=== PATIENT | female | born 1950 | race Caucasian/White ===

== ENCOUNTER 2016-06-05 16:54 | Inpatient (IN) | payer MEDICARE, OTHER ==
[~2016-06-05] VITALS: Ht 165.1 cm; Wt 118.1 kg
[~2016-06-05 16:54] MED LIST: FUR20 PO; GLIP10TA10 PO; INSU100I18 SUBQ; INSU100V7 SUBQ; LEVO88TA4 PO; METO25TA99 PO; POTA20TA16 PO; SERT20OR6 PO; TRAZ-115 PO; WARF6TAB6 PO
[2016-06-05 17:03] VITALS: BP 122/71; PULSE 89; RESP 13
--- NOTE | 2016-06-05 17:05 | ED.REPORT ---
HPI-General Illness Date of Service Jun 05, 2016 ED Provider: Dr. Renan David, GilbertoO. A 65 year old female with a medical history including CHF, diabetes, hypothyroid , depression, and atrial fibrillation on Coumadin presents to the ED from Urgent Care with worsening generalized weakness onset two days ago, worst in her bilateral legs and neck. Associated symptoms include exertional SOB and fatigue. The patient denies focal weakness, headache, chest pain, fever, cough, vomiting, diarrhea, dysuria, or other symptoms. She has never had similar symptoms in the past. Nursing Notes Stated Complaint: FATIGUE, WEAK LEGS Chief Complaint: General Complaint Nursing Notes Reviewed: Yes Allergies: Coded Allergies: TAPE (Verified Allergy, Unknown, 05/21/15) codeine (Verified Adverse Reaction, Severe, Nausea,Vomiting, 05/21/15) "that was something I don't want to feel like again" Scheduled Digoxin (Digoxin) 250 Mcg Tablet 250 MCG PO QAM Furosemide (Furosemide) 20 Mg Tab 20 MG PO QAM Glipizide (Glipizide) 5 Mg Tablet 5 MG PO BIDWM Insulin Aspart (NovoLOG U100 Insulin Vial) 100 U/Ml U 5 UNIT SUBQ DAILYWM 5 UNITS WITH BREAKFAST, 5-7 UNITS WITH DINNER Insulin Aspart (NovoLOG U100 Insulin Vial) 100 U/Ml U 5-7 UNIT SUBQ DAILYWD 5 UNITS WITH BREAKFAST, 5-7 UNITS WITH DINNER Insulin Glargine (Lantus U100 Insulin Vial) 100 Unit/Ml Vial 10 UNIT SUBQ HS Levothyroxine (Levothyroxine) 88 Mcg Tablet 88 MCG PO QAM Magnesium Oxide (Magnesium Oxide) 400 Mg Tablet 400 MG PO QAM Metoprolol Succinate ER (Metoprolol Succinate ER) 25 Mg Tab.er.24h 25 MG PO QAM Multivit with Calcium,Iron,Min (Therapeutic M) 1 Each Tablet 1 EACH PO QAM Potassium Chloride (Potassium Chloride) 20 Meq Tablet 20 MEQ PO DAILYWM Ranitidine (Ranitidine) 150 Mg Capsule 150 MG PO BIDWM Sertraline HCl (Sertraline) 20 Mg/1 Ml Oral.conc 100 MG PO QAM Trazodone (Trazodone) 50 Mg Tablet 100-150 MG PO HS Warfarin Sodium (Warfarin Sodium) 6 Mg Tablet 6 MG PO DAILY EXCEPT SUNDAYS 3 MG ON SUNDAYS, 6 MG ALL OTHER DAYS Warfarin Sodium (Warfarin Sodium) 6 Mg Tablet 3 MG PO SUNDAYS 3 MG ON SUNDAYS, 6 MG ALL OTHER DAYS Scheduled PRN Albuterol HFA (Proair HFA) 8.5 Gm Hfa.aer.ad 2 PUFFS INHALATION Q4H PRN PRN For Shortness of Breath General Time Seen by MD: 17:04 Chief Complaint Weakness Hx Obtained From: Patient Arrived By: Walk-in Sudden in Onset?: No Onset Occurred: 2 days ago Symptom Duration: Since onset Severity: Current: No pain currently Severity: Maximum: No pain Associated with: Denies: Fever Exacerbated by: Moving affected area Pertinent Negative: Relieved by nothing Context Related History: Reports Asthma, Reports Depression, Reports Diabetes mellitus , Reports GERD Recent Healthcare: Recent doctor visit Similar Sx Previous: No Past Medical History Past Medical History Notes: On Coumadin (06/05/16) Echocardiogram from April 2015, showed normal ejection fraction and diastolic dysfunction. Past Medical History Depression Anxiety Hypothyroid frequency ground level falls secondary to alcohol intoxication (binge drinker) Reports: Asthma, Congestive heart failure (Diastolic), Diabetes mellitus, GERD, Hyperlipidemia Reports: Atrial fibrillation Past Surgical History Bilateral achilles tendons surgery Bilateral ankle repair Hiatal hernia surgery Reports: Appendectomy, Cholecystectomy, Hysterectomy, Tonsillectomy Family History Reports: Coronary artery disease Smoking History Former Smoker Social History Today (12/24/14) the patient states she drinks two times a week, binge drinks Alcohol Use: 1-3 per week Drug Use: Denies drug use Other Social History: Lives alone, Local resident Ambulatory Status Walker Review of Systems Full Review of Systems Constitutional: Reports: Fatigue, Weakness - generalized (Worst in bilateral legs and neck), Denies: Fever Respiratory: Reports: Shortness of breath (Exertional), Denies: Non-productive cough Cardiovascular: Denies: Chest pain GI: Denies: Diarrhea, Vomiting Female: Denies: Dysuria Neurologic: Denies: Focal weakness, Headache Complete sys rev & neg: except as marked. Physical Exam Vital Signs Vital Signs Date Time Temp Pulse Resp B/P Pulse Ox O2 Delivery O2 Flow Rate FiO2 06/05/16 18:26 91 14 130/108 97 Room Air 06/05/16 17:03 36.2 89 13 122/71 Room Air Initial VS: Reviewed Head / Eyes: Atraumatic, Normocephalic ENT: Conjunctiva normal, No scleral icterus Neck: Supple, Full range of motion Respiratory: Breath sounds normal, Clear to auscultation, No respiratory distress Cardiovascular: Regular rate & rhythm, Heart sounds normal Skin: Warm, Dry, No cyanosis Psychiatric: Mood/affect normal, Behavior normal, Normal thought content General/Constitutional: Awake, Alert Distress / Hydration: Positive: Distress mild Lower Extremity / Pelvis / MS: Full range of motion, Vascular intact (Normal pulses), No edema Neurologic: Oriented X3, Speech NL, No sensory deficits, Reflexes equal bilat 3/5 hip flexor strength 5/5 plantarflexion and dorsiflexion strength Interpretation & Diagnostics Lab Results Interpretation Result Diagram: 06/05/16 1800 06/05/16 1800 Test 06/05/16 17:10 06/05/16 18:00 06/05/16 18:20 Hold Purple Top Tube Received (Received) Hold Red Top Tube Received (Received) Hold [place] Top Tube Received (Received) Alcohols < 10mg/dL (0-10) Ketones Negative (Negative) White Blood Count 6.7th/mm3 (3.8-10.1) Red Blood Count 3.53mil/mm3 (3.90-5.20) Hemoglobin 9.8g/dL (12.0-15.6) Hematocrit 31.2% (35.0-46.0) Mean Corpuscular Volume 88.4fL (81-100) Mean Corpuscular Hemoglobin 27.8pg (27.0-35.0) Mean Corpuscular Hemoglobin Concent 31.4% (32.0-37.0) Red Cell Distribution Width 16.9% (12.3-15.4) Platelet Count 306bil/L (150-400) Neutrophils (%) (Auto) 84.8% (40-74) Lymphocytes (%) (Auto) 8.1% (14-46) Monocytes (%) (Auto) 5.1% (4-12) Eosinophils (%) (Auto) 1.6% (0-5) Basophils (%) (Auto) 0.1% (0-3) Sodium Level 134mEq/L (134-144) Potassium Level 3.1mEq/L (3.5-5.2) Chloride Level 89mEq/L (97-108) Carbon Dioxide Level 26mmol/L (18-29) Blood Urea Nitrogen 9mg/dL (8-27) Creatinine 0.74mg/dL (0.57-1.00) Estimat Glomerular Filtration Rate 112mL/min (>59) Glucose Level 247mg/dL (60-99) Calcium Level 8.9mg/dL (8.5-10.1) Magnesium Level 1.6mg/dL (1.6-2.6) Total Bilirubin 0.7mg/dL (0.0-1.2) Aspartate Amino Transf (AST/SGOT) 8U/L (0-50) Alanine Aminotransferase (ALT/SGPT) 6U/L (0-32) Alkaline Phosphatase 119U/L (25-165) Troponin T < 0.010ug/L (0.0-0.011) Pro-B-Type Natriuretic Peptide 844.5pg/mL (0-301) Total Protein 7.2g/dL (6.4-8.4) Albumin 3.9g/dL (3.4-5.0) Prothrombin Time 19.9sec (8.1-12.5) Prothromb Time International Ratio 1.84ratio D-Dimer < 0.50mg/L FEU (<0.50) Hold [place] Top Tube Received (Received) ECG Interpretation ECG Interpretation: Atrial fibrillation rate 96 Left axis deviation Repol abnrm suggests ischemia, lateral leads Time: 18:29 Interpreted by: ED physician X-Ray Chest Interpretation Chest Xray Interpretation: IMPRESSION: 1. No acute cardiopulmonary disease. 2. Large hiatal hernia redemonstrated. Dictated by: Hieu Sotelo M.D. on 06/05/2016 at 18:56 View: Portable, 1 view Interpretation / Wet Read by: Interpret - Radiologist Re-Eval/Medical Decision Med Decision/Clinical Course Severe dyspnea on exertion with a sense of generalized weakness, this does not seem to be a progressive neurologic phenomenon such as Guillain-Valdes, this does not seem to be stroke in nature, there is no evidence of pneumonia, this may be related to congestive heart failure or some sort of anginal equivalent. However, this patient is clearly not stable for discharge based on her severely limited functional status which has been an acute change today. I recommended she be admitted for further evaluation. Source of Hx: Old records Time of Eval: 19:06 Patient Status: Condition improved Re-Evaluation/Progress Note: Patient rechecked. She is feeling better. Time of Eval: 20:00 Patient Status: Condition improved Re-Evaluation/Progress Note: On road test patient became extremely short of breath. Discussed with patient x-ray and lab results, diagnosis, and plan for admit. Patient agrees with plan for care and all questions were addressed. Consultation : Referral / Consult Name: Pete Tobar MD Consulted With: Hospitalist Call Returned at: 20:09 Supervisor [employer]: Agrees with eval, Agrees with plan, Accepts admit Counseled Regarding: Diagnosis, Lab results, Need for admission Discharge & Departure Primary Impression: Congestive heart failure Congestive heart failure type: unspecified congestive heart failure type Congestive heart failure chronicity: unspecified congestive heart failure chronicity Qualified Code: I50.9 - Heart failure, unspecified Disposition: ADMITTED TO HOSPITAL Discharge Condition All VS Reviewed: Yes Condition: Improved Referrals: Alvin Mayer MD (PCP) Scribe Attestation Portions of this note were transcribed by Jaylene Bains. I, Dr. David, personally performed the history, physical exam, and medical decision-making; I reviewed and confirmed the accuracy of the information in the transcribed note. Signed by: Iris Almaguer, 06/05/2016, 21:17 copies to: Alvin Mayer MD, Timothy S DO Jun 05, 2016 17:05 JAYLENE BAINS Jun 05, 2016 17:34
[2016-06-05] MEDS ORDERED: 0.9% Sodium Chloride 500 ML IV ONE (17:55)
[2016-06-05 18:03] LABS: BASOPHILS % (AUTO) 0.1 % (0-3); EOSINOPHILS % (AUTO) 1.6 % (0-5); MONOCYTES % (AUTO) 5.1 % (4-12); Mean Corpuscular Hemoglobin 27.8 pg (27.0-35.0); Mean Corpuscular Volume 88.4 fL (81-100); NEUTROPHILS % (AUTO) 84.8 % (40-74); Platelet Count 306 bil/L (150-400)
[2016-06-05 18:17] LABS: TROPONIN T < 0.010 ug/L (0.0-0.011)
[2016-06-05 18:26] VITALS: BP 130/108; PULSE 91; RESP 14; O2SAT 97
[2016-06-05 18:27] LABS: Magnesium 1.6 mg/dL (1.6-2.6)
[2016-06-05] MEDS ORDERED: Potassium Chloride 20 mEq SR Tablet PO ONE (18:35)
--- NOTE | 2016-06-05 18:59 | DRSVH ---
PROCEDURE: X-RAY CHEST ONE VIEW, PORTABLE ([id number]) INDICATIONS: dyspnea TECHNIQUE: One view of the chest was acquired. COMPARISON: [facility], CR, CHEST 1VW (PORTABLE), 04/02/2013, 9:34. [facility], CR, XR CHEST 1VW (PORTABLE), 05/21/2015, 23:50. FINDINGS: Surgical changes and devices: Multiple surgical clips are redemonstrated in the lower mediastinum and left upper quadrant Lungs and pleura: No pleural effusions or pneumothorax. Lungs are clear. Mediastinum: There is a large hiatal hernia demonstrated. Heart size is normal. Bones and chest wall: No suspicious bony lesions. Overlying soft tissues appear unremarkable. IMPRESSION: 1. No acute cardiopulmonary disease. 2. Large hiatal hernia redemonstrated. Dictated by: Hieu Sotelo M.D. on 06/05/2016 at 18:56 Approved by: Hieu Sotelo M.D. on 06/05/2016 at 18:57
[2016-06-05 19:01] LABS: D-Dimer < 0.50 mg/L FEU (<0.50); INR 1.84 ratio
[2016-06-05] MEDS ORDERED: GLPZ5T PO (20:39)
[2016-06-05] MEDS ORDERED: INSU100C8 SUBQ ×2 (20:39)
[2016-06-05] MEDS ORDERED: RANI150C4 PO (20:45)
[2016-06-05] MEDS ORDERED: ALBU8.5H2 INHALATION (20:45)
[2016-06-05] MEDS ORDERED: MAGN400T4 PO (20:45)
[2016-06-05] MEDS ORDERED: MULT-140 PO (20:45)
[2016-06-05] MEDS ORDERED: DIGO250T72 PO (20:45)
[2016-06-05] MEDS ORDERED: Alum-Mag Hydrox-Simeth 30 mL Suspension PO PRN (21:15)
[2016-06-05] MEDS ORDERED: Ondansetron 2 mg/mL 2 mL Inj IVPUSH PRN (21:15)
[2016-06-05 21:34] VITALS: BP 142/94; PULSE 84; RESP 16; O2SAT 98
[2016-06-05 22:15] VITALS: BP 138/68; PULSE 93; RESP 18; O2SAT 97
--- NOTE | 2016-06-05 22:15 | NUR ---
ADMIT Pt admitted to floor via via stretcher. Pt ambulated with FWW with SOB to bedside. Report given by Mary Christian. Pt brought to floor by Jama Bourgeois. VSS and pt does not report any pain.
[2016-06-05 22:16] LABS: APPEARANCE,URINE CLOUDY (CLEAR,HAZY); COLOR,URINE DARK YELLOW (YELLOW); OCCULT BLOOD,URINE TRACE (NEGATIVE)
[2016-06-05 22:17] LABS: UROBILINOGEN,URINE NORMAL (NORMAL)
[2016-06-05 22:28] VITALS: PULSE 91
[2016-06-05 22:38] LABS: ICTOTEST,URINE POSITIVE (Negative)
--- NOTE | 2016-06-05 23:33 | PCM.HPMED ---
Subjective Date of Service Jun 05, 2016 Primary Provider: Admitting Physician: Pete Tobar MD Primary Care Physician: Alvin Mayer MD Attending Physician: Pete Tobar MD Admit Status: From the Emergency Department Chief Complaint: Increasing weakness and dyspnea on exertion History of Present Illness: Pleasant 65yo woman with complex medical history including Diastolic CHF, COPD, Asthma, DM2 on mcfp insulin, AFib on coumadin presents with 2 days of increasing weakness and DONALDSON, much worse than her baseline weakness and dyspnea. She reports that usually she doesn't need a walker in her home and does not get short of breath there. But today she went for protime appointment, barely made it into the lab, and then was not able to get up and leave so that clinic sent her to from which she was sent to our ER. She always has edema or the lower legs L>R. In the ER she was found to have K+ of 3.1, UA positive for infection , EKG indicating AFib with normal rate. Her only medication for COPD and asthma is a rescue inhaler which she uses 1-2 times daily. She is anemic with Hgb of 9.8 which is lower than the 10.6 we find from a year ago in [facility]. She denies dysuria, abdominal pain, urgency with urination. Review of Systems: copmplete ROS is negative except as noted above in the HPI Allergies Coded Allergies: TAPE (Verified Allergy, Unknown, 05/21/15) codeine (Verified Adverse Reaction, Severe, Nausea,Vomiting, 05/21/15) "that was something I don't want to feel like again" Home Medications Scheduled Digoxin (Digoxin) 250 Mcg Tablet 250 MCG PO QAM Furosemide (Furosemide) 20 Mg Tab 20 MG PO QAM Glipizide (Glipizide) 5 Mg Tablet 5 MG PO BIDWM Insulin Aspart (NovoLOG U100 Insulin Vial) 100 U/Ml U 5 UNIT SUBQ DAILYWM 5 UNITS WITH BREAKFAST, 5-7 UNITS WITH DINNER Insulin Aspart (NovoLOG U100 Insulin Vial) 100 U/Ml U 5-7 UNIT SUBQ DAILYWD 5 UNITS WITH BREAKFAST, 5-7 UNITS WITH DINNER Insulin Glargine (Lantus U100 Insulin Vial) 100 Unit/Ml Vial 10 UNIT SUBQ HS Levothyroxine (Levothyroxine) 88 Mcg Tablet 88 MCG PO QAM Magnesium Oxide (Magnesium Oxide) 400 Mg Tablet 400 MG PO QAM Metoprolol Succinate ER (Metoprolol Succinate ER) 25 Mg Tab.er.24h 25 MG PO QAM Multivit with Calcium,Iron,Min (Therapeutic M) 1 Each Tablet 1 EACH PO QAM Potassium Chloride (Potassium Chloride) 20 Meq Tablet 20 MEQ PO DAILYWM Ranitidine (Ranitidine) 150 Mg Capsule 150 MG PO BIDWM Sertraline HCl (Sertraline) 20 Mg/1 Ml Oral.conc 100 MG PO QAM Trazodone (Trazodone) 50 Mg Tablet 100-150 MG PO HS Warfarin Sodium (Warfarin Sodium) 6 Mg Tablet 6 MG PO DAILY EXCEPT SUNDAYS 3 MG ON SUNDAYS, 6 MG ALL OTHER DAYS Warfarin Sodium (Warfarin Sodium) 6 Mg Tablet 3 MG PO SUNDAYS 3 MG ON SUNDAYS, 6 MG ALL OTHER DAYS Scheduled PRN Albuterol HFA (Proair HFA) 8.5 Gm Hfa.aer.ad 2 PUFFS INHALATION Q4H PRN For Shortness of Breath PMH Diastolic CHF DM2 insulin dependent AFib on Coumadin Hyperlipidemia COPD Asthma Depression Anxiety Hypothyroid GERD Surgical History Bilateral gisselle's tendon surgeries Bilateral ankle repair Hiatal hernia surgery Appendectomy Cholecystectomy Hysterectomy Tonsillectomy Family History Father: CAD, [place], at age 71 Mother: HTN, at age 74 Social History Hx Alcohol Use: Yes (Sober for one year) Alcoholic Drinks Per Day: 0 per day. Sober one year Hx Substance Use: No Hx Tobacco Use: Yes (1 1/2 PACKS PER DAY, stopped 2013) Smoking Status: Current Every Day Smoker (1/2 ppd) Living Arrangement: Alone Exam Vital Signs Vital Sign - Last Date Time Temp Pulse Resp B/P Pulse Ox O2 Delivery O2 Flow Rate FiO2 06/05/16 22:28 91 06/05/16 22:15 36.4 18 138/68 97 Room Air 06/05/16 21:34 3 Exam General: Alert, Oriented X3, Cooperative, No Acute Distress Head: Normocephalic, atraumatic. External ears normal. Eyes: PERRLA, EOMI. Anicteric sclerae. Mouth: Mouth Normal, Mucous Membranes Moist/[place] Neck: Neck supple with full range of motion. Chest & Lungs: Clear to auscultation bilaterally with no crackles, wheezes, or rhonchi, poor air movement, poor effort Cardiovascular: Regular Rate/Rhythm, Normal S1, Normal S2, No Murmurs/Rubs/ Gallops Abdomen: Non-tender, Non-distended, No masses, Normoactive bowel tones, Soft Musculoskeletal: pronounced weakness in all four limbs, able to sit up Extremities: No cyanosis/clubbing/edema bilaterally Neurological: Grossly Neurologically Intact, Cranial Nerves 2-12 Intact, Normal Speech, Strength is 3+/4 in UE and LE, Sensation Intact, Cerebellar Function nl Finger-Nose, unable to perform Cerebellar Function Heel-Mcgee because of weakness, Reflexes unobtainable, 0/4 Lab and Diagnostics Labs Laboratory Tests Test 06/05/16 17:10 06/05/16 18:00 06/05/16 18:20 06/05/16 21:49 Hold Purple Top Tube Received (Received) Hold Red Top Tube Received (Received) Hold [place] Top Tube Received (Received) Alcohols < 10mg/dL (0-10) Ketones Negative (Negative) White Blood Count 6.7th/mm3 (3.8-10.1) Red Blood Count 3.53mil/mm3 (3.90-5.20) Hemoglobin 9.8g/dL (12.0-15.6) Hematocrit 31.2% (35.0-46.0) Mean Corpuscular Volume 88.4fL (81-100) Mean Corpuscular Hemoglobin 27.8pg (27.0-35.0) Mean Corpuscular Hemoglobin Concent 31.4% (32.0-37.0) Red Cell Distribution Width 16.9% (12.3-15.4) Platelet Count 306bil/L (150-400) Neutrophils (%) (Auto) 84.8% (40-74) Lymphocytes (%) (Auto) 8.1% (14-46) Monocytes (%) (Auto) 5.1% (4-12) Eosinophils (%) (Auto) 1.6% (0-5) Basophils (%) (Auto) 0.1% (0-3) Sodium Level 134mEq/L (134-144) Potassium Level 3.1mEq/L (3.5-5.2) Chloride Level 89mEq/L (97-108) Carbon Dioxide Level 26mmol/L (18-29) Blood Urea Nitrogen 9mg/dL (8-27) Creatinine 0.74mg/dL (0.57-1.00) Estimat Glomerular Filtration Rate 112mL/min (>59) Glucose Level 247mg/dL (60-99) Calcium Level 8.9mg/dL (8.5-10.1) Magnesium Level 1.6mg/dL (1.6-2.6) Total Bilirubin 0.7mg/dL (0.0-1.2) Aspartate Amino Transf (AST/SGOT) 8U/L (0-50) Alanine Aminotransferase (ALT/SGPT) 6U/L (0-32) Alkaline Phosphatase 119U/L (25-165) Troponin T < 0.010ug/L (0.0-0.011) Pro-B-Type Natriuretic Peptide 844.5pg/mL (0-301) Total Protein 7.2g/dL (6.4-8.4) Albumin 3.9g/dL (3.4-5.0) Prothrombin Time 19.9sec (8.1-12.5) Prothromb Time International Ratio 1.84ratio D-Dimer < 0.50mg/L FEU (<0.50) Lactic Acid Level 1.2mmol/L (0.4-2.0) Hold [place] Top Tube Received (Received) Urine Color Dark yellow (YELLOW) Urine Appearance Cloudy (CLEAR,HAZY) Urine pH 6.0 (5.0-8.0) Urine Specific [place] 1.015 (1.003-1.035) Urine Protein 30mg/dL (NEG,TRACE) Urine Glucose (UA) Negativemg/dL (NEGATIVE) Urine Ketones 15mg/dL (NEGATIVE) Urine Occult Blood Trace (NEGATIVE) Urine Nitrite Negative (NEGATIVE) Urine Bilirubin Small (NEGATIVE) Urine Ictotest Positive (Negative) Urine Urobilinogen Normalmg/dL (NORMAL) Urine Leukocyte Esterase Large (NEGATIVE) Urine RBC 0-2/hpf (0-2) Urine WBC Packed/hpf (0-5) Urine Epithelial Cells Many/hpf (NONE-MOD) Urine Crystals None seen (NONE SEEN) Urine Bacteria Many/hpf (NONE-FEW) Urine Hyaline Casts None/lpf (NONE) Urine Granular Casts None seen (NONE SEEN) Urine Waxy Casts None seen (NONE SEEN) Urine Red Blood Cell Casts None seen (NONE SEEN) Urine White Blood Cell Casts None seen (NONE SEEN) Urine Mucus None seen (None Seen) Urine Trichomonas None seen (NONE SEEN) Urine Yeast None (NONE SEEN) Urine Culture Reflexed Indicated Microbiology 06/05/16 Urine Culture, Received Pending Result Diagram: 06/05/16 1800 06/05/16 1800 Microbiology Urine cx pending X-Rays, CTs and MRIs CXR IMPRESSION: 1. No acute cardiopulmonary disease. 2. Large hiatal hernia redemonstrated. 12-lead ECG Atrial fibrillation rate 96 Left axis deviation Abnormal repolarization suggests ischemia, lateral leads Cardiac Echo Impressions Echo last year, 04/13/15: 1. Normal left ventricular thickness, size, wall motion, and systolic function, EF 60-65% 2. Noraml right ventricular size and function 3. Grade 2 diastolic dysfunction (pseudonormalization) present, consistent with elevated filling pressures. 4. No significant valvular abnormalities 5. no significant change from previous on 09/15/14 Assessment & Plan Pleasant 65yo woman with complex medical history including Diastolic CHF, COPD, Asthma, DM2 on mcfp insulin, AFib on coumadin presents with 2 days of increasing weakness and DONAL[place]ON, much worse than her baseline weakness and dyspnea. In the ER she was found to have K+ of 3.1, UA positive for infection, EKG indicating AFib with normal rate. She is anemic with Hgb of 9.8 which is lower than the 10.6 we find from a year ago in [facility] outpatient records. She denies dysuria, abdominal pain, urgency with urination. 1. Weakness, POA. With positive UA this is likely secondary to a UTI. However, also she has history of diastolic CHF and COPD and asthma which could also be contributing to her weakness. -PT evaluation 2. UTI, POA. The lack of symptoms could be neurogenic, part of her diabetic neuropathy -Ceftriaxone 1000mg IV q24h -General Diet -Encourage oral fluid intake 3. DM2 insulin dependent, POA. stable, all HA1cs on record are below 7. -Continue basal insulin at half home dose: 5units qhs -medium dose correctional scale insulin 4. Diastolic Heart Failure, POA, no echo for a year. -Echocardiogram in the morning 5. COPD/Asthma, POA. Not well controlled with patient needing her rescue inhaler 1-2 times daily. -recommend outpatient follow up 6. Anion Gap Metabolic Acidosis, Hypochloremic, POA. Secondary to infection, tox screen is negative. -Lactic Acid ordered for morning labs 6. Other chronic problems, POA, stable -continue home medications. PRN medications available for nausea, heartburn, constipation: Ondansetron, Maalox, Senna, Miralax Pain Evaluation: Adequate Pain Control VTE Prophylaxis: Sub-Q Heparin (Unfractionated), SCDs Resuscitation Status: DNR/DNI:Do Not Resuscitate/Intubate Limited Interventions: Medications and IV Fluid Attending Statement The patient was seen and examined together with Dr. Johnson on 06/06 and I agree with the history, exam and plan as outlined in the note above. Lm Johnson DO Jun 05, 2016 23:08 Pete Tobar MD Jun 06, 2016 01:52
[2016-06-05] MEDS ORDERED: LIP40 PO (23:35)
[2016-06-06] VITALS (7 sets, daily range): BP systolic 122–147; BP diastolic 68–89; PULSE 67–100; RESP 18–20; O2SAT 94–99
[2016-06-06] MEDS ORDERED: 0.9% Sodium Chloride 1,000 ML IV ONE (00:50)
[2016-06-06] MEDS: cefTRIAXone Inj 1,000 MG in Dextrose 5% Minibag Plus 50 ML IV SCH (01:09)
[2016-06-06] MEDS ORDERED: Insulin GLARgine 100 Unit/mL Syringe SUBQ SCH (01:10)
[2016-06-06] MEDS ORDERED: Glucose 40% Oral Gel 15 Gm Tube PO PRN (01:10)
[2016-06-06 01:34] LABS: BASOPHILS % (AUTO) 0.2 % (0-3); EOSINOPHILS % (AUTO) 1.6 % (0-5); MONOCYTES % (AUTO) 5.4 % (4-12); Mean Corpuscular Hemoglobin 27.6 pg (27.0-35.0); Mean Corpuscular Volume 88.8 fL (81-100); NEUTROPHILS % (AUTO) 75.4 % (40-74); Platelet Count 241 bil/L (150-400)
[2016-06-06] MEDS ORDERED: Albuterol 2.5 mg/3 mL Inhalation Solution NEB PRN (02:28)
[2016-06-06 06:37] LABS: INR 1.76 ratio
--- NOTE | 2016-06-06 07:24 | PCM.PHAPRO ---
Progress Warfarin Management by Pharmacy: -Indication: afib -Home Dose: warfarin 6mg daily except 3mg on Sundays -[id number] Score: 4 -Concurrent Anticoagulation: none -Disease Interactions: copd,chf -Drug Interactions: ceftriaxone, sertraline -Inr today: 1.76 -H/H 8.41 Plt: 241 -Plan: pt is a new admission to the hospital. will continue her home dose this evening of warfarin 6mg and follow. serial inr's have been ordered Chelita Guevara [facility] Jun 06, 2016 07:24
[2016-06-06] MEDS: Insulin LISPRO 300 Unit/3 mL Inj SUBQ SCH ×4 (08:19→21:34)
[2016-06-06] MEDS: MeTOProlol XL 25 mg ER24 Tablet PO SCH ×2 (09:42→17:30)
[2016-06-06] MEDS: Potassium Chloride 20 mEq SR Tablet PO SCH (09:43)
--- NOTE | 2016-06-06 11:12 | DRSVH ---
Located Within [facility] [address] [place] [address] Echocardiogram Report Name: BETSEY LLOYD Study Date: 06/06/2016 Height: 65 in Hospital Exam Location: [facility] Weight: 260 lb Gender: Female BSA: 2.2 m2 : 1950 Age: 65 yrs BP: 132/84 mmHg Reason For Study: CHF Ordering Physician: HOSPITALIST [facility] Performed By: Karthikeyan Carl Referring Physician: Alvin Mayer Interpretation Summary There is normal left ventricular wall thickness. The ejection fraction is estimated to be 45-50%. There is mild global hypokinesis of the left ventricle. There is mild aortic valve sclerosis. There is mild tricuspid regurgitation. The right ventricular systolic pressure is estimated at 34 mmHg assuming a right atrial pressure of 3 mm Hg. Procedure: A two-dimensional transthoracic echocardiogram with color flow and Doppler was performed. The study quality was technically adequate. Comparison is made with the echocardiogram of 04/13/15. The patient was in atrial fibrillation with controlled ventricular rate during the exam. The patient had a heart rate of 73-100 beats per minute. Left Ventricle: The left ventricle is normal in size. There is normal left ventricular wall thickness. The ejection fraction is estimated to be 45-50%. There is mild global hypokinesis of the left ventricle. Right Ventricle: The right ventricle is normal in size and function. Atria: The left atrium is severely dilated. The right atrium is mildly dilated. The interatrial septum is intact with no evidence for an atrial septal defect. Mitral Valve: The mitral valve is normal in structure and function. There is trace mitral regurgitation. Aortic Valve: The aortic valve is trileaflet. There is discrete nodular thickening of the left coronary cusp. Leaflet mobility is minimally reduced. There is mild aortic valve sclerosis. There is no aortic valve stenosis. No aortic regurgitation is present. Tricuspid Valve: The tricuspid valve is normal in structure and function. There is mild tricuspid regurgitation. The right ventricular systolic pressure is estimated at 34 mmHg assuming a right atrial pressure of 3 mm Hg. Pulmonic Valve: The pulmonic valve is not well seen, but is grossly normal. There is trace pulmonic regurgitation. Great Vessels: The aortic root is normal size. The ascending aorta is mildly enlarged. The aortic arch is mildly enlarged. The pulmonary artery is normal size. The IVC is of normal diameter and collapses greater than 50% with a sniff. This suggests a low right atrial pressure of 3 mm Hg. Pericardium/ Pleura There is no pericardial effusion. There is no pleural effusion. MMode/2D Measurements & Calculations LVIDd: 5.2 cm RA long axis: 5.1 cm LVOT diam: 2.0 cm LVIDs: 3.8 cmLA A2 area: 32.4 cm AoV Openin.8 cm FS: 26.4 % LA A4 area: 26.4 cm RA area: 20.8 cm Ao root diam EPSS: 0.76 cmLA length (vol) RA vol: 72.2 ml IVSd: 1.0 cm RA : 32.6 ml/m2 Aortic Jxn: 2.2 cm LVPWd LA vol: 118.3 ml asc Aorta Diam : 0.8cm LA vol index Ao Arch Diam (Prox Trans): 3.2 cm IVC diam: 1.9 cm EDV(MOD-sp2) LV del angel. diameter/BSA LV sys. diameter/BSA RVD1 (basal) (cm/m^2): 2.4 (cm/m^2): 1.7 ESV(MOD-sp2) EF(MOD-sp2) Doppler Measurements & Calculations Ao V2 max MV E max tod Med Peak E' Tod TR max tod : 183.6 cm/sec : 152.2 cm/sec : 276.1 cm/sec Ao max PG E/E' med: 20.5 TR max P.6 mmHg : 13.5 mmHg Lat Peak E' Tod PA V2 max Ao mean PG : 101.9 cm/sec E/E' lat: 12.3 PA mean P.1 mmHg LVOT Max Tod E/e' average PA Accel Time : 93.0 cm/sec : 0.08 sec ARABELLA(I,D): 1.7 cm sev ratio Ao V2 mean LV V1 max PG PA V2 mean ARABELLA indexed to BSA : 123.6 cm/sec : 69.5 cm/sec (cm^2/m^2): 0.78 Ao V2 VTI LV V1 VTI: 16.3 cm ARABELLA(V,D): 1.6 cm2 Electronically signed by: Alcides Driscoll on Reading Physician:06/06/2016 11:11 AM
[2016-06-06 11:19] LABS: Mean Corpuscular Hemoglobin 27.8 pg (27.0-35.0); Mean Corpuscular Volume 87.2 fL (81-100)
--- NOTE | 2016-06-06 11:58 | NUR ---
Evaluation completed. Please go to "Notes" then click on "Assessments and Notes" (bottom left corner of screen). Then select appropriate discipline tab on top of screen.
--- NOTE | 2016-06-06 12:36 | NUR ---
Social Work Note - Initial Assessment: D/A: See Initial Assessment. The Pt is a 65 y/o female that was admitted under observation state for CHF. The Pt's PCP is MD Alvin Mayer and her insurance is Medicare, no LTC or VA benefits reported. EMR reviewed. SW met with the Pt to explain role and discuss discharge planning. SW telephone number written on white board. The Pt lives alone in a one story home in [place], reported that she was previously completely independent about one month prior to hospitalization. The Pt reports that she has one daughter who lives nearby, Advanced Directive on file. The Pt states that she continues to drive, uses a walker, and has no HH history. The Pt reported that she has been to [facility] twice in the past for rehab. The Pt also reports that she pays for housekeeping services and is able to request additional assistance if needed. Pt eval completed, recommending discharge to SNF via cabulance. Pt is currently OBS status, SW in contact with Utilization RN regarding Pt's status. Utilization to contact SW if status changes. SW met with Pt to discuss PT recommendations, Pt declined SNF list. Pt would consider private pay to [facility]. SW t/c to Neurological Surgeon for referral assistance. SW to follow. The Pt does not have any other SNF preferences at this time. Pt is also receiving IV Abx q24h ceftriaxone. SW to follow for IV Abx needs. The Pt denies any other needs at this time. SW will continue to follow. P: The Pt is not medically stable for discharge at this time. PT eval completed, recommending SNF via cabulance. Pt willing to consider private pay SNF stay, SW in contact with Neurological Surgeon for assistance. Pt receiving IV Abx, SW to follow of IV Abx needs. SW to follow. NAVDEEP Carvalho Extrusion Supervisor Addendum: 06/06/16 at 1305 by NAHEED SAMSON SS Amended: Links added. Addendum: 06/06/16 at 1552 by NAHEED SAMSON SS SW informed that Pt is now admitted as INPT, Pt informed of status change. SW following for discharge needs. NAVDEEP Carvalho Addendum: 06/06/16 at 1555 by KALINA HINES SS QUINN tax services intern note reviewed. NAVDEEP Jung
--- NOTE | 2016-06-06 13:09 | NUR ---
Evaluation completed. Please go to "Notes" then click on "Assessments and Notes" (bottom left corner of screen). Then select appropriate discipline tab on top of screen.
--- NOTE | 2016-06-06 13:42 | PCM.PNMED ---
Subjective Date of Service Jun 06, 2016 Subjective says overall feeling improved although still not back to baseline. Her career technical education instructor notes that patient looks more pale than usual and seem weaker than previous days Exam Vital Signs Vital Sign - Last Date Time Temp Pulse Resp B/P Pulse Ox O2 Delivery O2 Flow Rate FiO2 06/06/16 09:43 94 06/06/16 03:34 36.6 20 132/84 96 Room Air 06/05/16 21:34 3 Intake and Output 06/05/16 06/05/16 06/06/16 Cumulative From/Thru 15:00 23:00 07:00 06/05/16 17:03 - 06/05/16 22:19 Intake Total 1000 ml 1000 ml Balance 1000 ml 1000 ml IV Total 1000 ml 1000 ml General: Alert, Oriented X3, Cooperative, No Acute Distress Head: Normal Eyes: Scleral Anicteric Nose: Mucous Membr Moist/[place] Mouth: Mucous Membr Moist/[place] Neck: Supple Chest & Lungs: Chest Wall Normal, Clear to auscultation & percussion Cardiovascular: Regular Rate/Rhythm Pulses: NL carotid, radial, femoral, DP, PT Abdomen: Non-tender, Non-distended, Normoactive bowel tones, Soft Extremities: No cyanosis/clubbing/edma bilat Neurological: Grossly Neurologically Intact, Normal Speech IVs and Medications Medications Reviewed: Medications were reviewed in detail Lab and Diagnostics Result Diagram: 06/06/16 1105 06/06/16 0115 Assessment & Plan 65 year old female with complex medical history including Diastolic CHF, COPD, Asthma, DM2 on [facility] insulin, A-Fib on Coumadin presents with 2 days of increasing weakness and [place], much worse than her baseline weakness and dyspnea. In the ER she was found to have K+ of 3.1, UA positive for infection, EKG indicating AFib with normal rate. She is anemic with Hgb of 9.8 which is lower than the 10.6 we find from a year ago in [facility] outpatient records. She denies dysuria, abdominal pain, urgency with urination. # Acute generalized weakness, present on admission. - Likely multifactorial due to underlying UTI and anemia - PT evaluation - Check Dig level # Acute urinary tract infection (UTI), present on admission. - Continue with IV Ceftriaxone - Followup final urine culture result # Acute on chronic anemia. present on admission. - Check stool guaiac - Check anemia panel/iron studies - Followup repeat h/h in am # Chronic Insulin dependent diabetes mellitus Type II. stable - Continue basal insulin - Correctional scale insulin # Chronic diastolic Heart Failure, present on admission. - Followup pending Echocardiogram - Continue with home dose Lasix # History of COPD/Asthma. Stable. - Continue with current treatment and supportive care # Chronic A-Fib. - Rate controlled. - Continue with home meds (Dig and Metoprolol) # Chronic anticoagulation with Coumadin - INR subtherapeutic - Continue with Coumadin - Followup daily INR # History of Depression/Anxiety. Stable - Continue with home meds # Hypothyroid - Continue with home dose Synthroid. Dispo: 1-2 days VTE Prophylaxis: Sub-Q Heparin (Unfractionated), SCDs Resuscitation Status: DNR/DNI:Do Not Resuscitate/Intubate Limited Interventions: Medications and IV Fluid Arnaud Oro Jun 06, 2016 13:42
[2016-06-06 14:28] LABS: Unsaturated Iron Binding 168.7 ug/dL
[2016-06-06 14:59] LABS: BASOPHILS % (AUTO) 0.6 % (0-3); EOSINOPHILS % (AUTO) 3.8 % (0-5); MONOCYTES % (AUTO) 6.3 % (4-12); Mean Corpuscular Hemoglobin 27.8 pg (27.0-35.0); Mean Corpuscular Volume 86.4 fL (81-100); NEUTROPHILS % (AUTO) 75.8 % (40-74); Platelet Count 242 bil/L (150-400)
--- NOTE | 2016-06-06 15:13 | NUR ---
Case Management: IMM given and explained to pt at 3:15 pm at bedside. No questions at this time. Signed original placed on hard chart, copy given to pt. PAULA Coley RN
--- NOTE | 2016-06-06 19:23 | NUR ---
Mobility Patient able to transfer from bed to the commode and tolerating well, some dyspnea on exertion otherwise willing to do some activities. Eating and drinking well. Denies any pain or any discomfort. Will continue to monitor. Patient aware of plan to be discharge to [facility].
[2016-06-06] MEDS: Insulin GLARgine 100 Unit/mL Syringe SUBQ SCH (21:35)
[2016-06-07] MEDS: cefTRIAXone Inj 1,000 MG in Dextrose 5% Minibag Plus 50 ML IV SCH (00:12)
[2016-06-07 06:00] VITALS: BP 127/83; PULSE 71; RESP 18
--- NOTE | 2016-06-07 06:37 | NUR ---
/Resp Pt has been up to BSC 1PA w/ walker frequently tonight, voiding well. Pt does get SOB upon exertion, but reports breathing much better and feeling much less SOB overall. Pt had no c/o pain and was able to get some rest.
[2016-06-07 06:40] LABS: Mean Corpuscular Hemoglobin 27.3 pg (27.0-35.0); Mean Corpuscular Volume 89.1 fL (81-100)
[2016-06-07 07:14] LABS: INR 1.69 ratio
[2016-06-07 07:49] LABS: Magnesium 1.6 mg/dL (1.6-2.6)
[2016-06-07 08:00] VITALS: BP 137/85; PULSE 89; RESP 18; O2SAT 95
[2016-06-07 08:36] LABS: TROPONIN T < 0.010 ug/L (0.0-0.011)
--- NOTE | 2016-06-07 08:57 | NUR ---
Per Kavitha at [facility], they are able to accept. Advised HOST/HOSTESS GROUND
[2016-06-07] MEDS: Insulin LISPRO 300 Unit/3 mL Inj SUBQ SCH ×4 (08:58→21:43)
[2016-06-07] MEDS: MeTOProlol XL 25 mg ER24 Tablet PO SCH ×2 (09:01→17:46)
[2016-06-07] MEDS: Potassium Chloride 20 mEq SR Tablet PO SCH (09:01)
[2016-06-07] MEDS: Heparin 5,000 Unit/mL Inj SUBQ SCH ×2 (10:45→16:30)
[2016-06-07 10:56] VITALS: PULSE 82
--- NOTE | 2016-06-07 12:35 | PCM.PNMED ---
Subjective Date of Service Jun 07, 2016 Subjective Complains of increased generalized weakness and feeling tired and sleepy. Exam Vital Signs Vital Sign - Last Date Time Temp Pulse Resp B/P Pulse Ox O2 Delivery O2 Flow Rate FiO2 06/07/16 10:56 82 06/07/16 06:00 36.7 18 127/83 Room Air 06/06/16 18:37 99 06/05/16 21:34 3 Intake and Output 06/06/16 06/06/16 06/07/16 Cumulative From/Thru 15:00 23:00 07:00 06/05/16 17:03 - 06/07/16 06:00 Intake Total 819 ml 1100 ml 400 ml 3319 ml Output Total 250 ml 800 ml 1550 ml 2600 ml Balance 569 ml 300 ml -1150 ml 719 ml Intake Oral 375 ml 800 ml 400 ml 1575 ml IV Total 444 ml 300 ml 1744 ml Output Urine Total 250 ml 800 ml 1550 ml 2600 ml Exam General: Alert, Cooperative, No Acute Distress Head: Normal Eyes: Scleral Anicteric Nose: Mucous Membr Moist/[place] Mouth: Mucous Membr Moist/[place] Neck: Supple Chest & Lungs: Chest Wall Normal, Clear to auscultation bilat Cardiovascular: Regular Rate/Rhythm Pulses: NL carotid, radial, femoral, DP, PT Abdomen: Non-tender, Non-distended, Normoactive bowel tones, Soft Extremities: No cyanosis/clubbing/edema bilat Neurological: Grossly Neurologically Intact, Normal Speech IVs and Medications Medications Reviewed: Medications were reviewed in detail Lab and Diagnostics Result Diagram: 06/07/1662006/07/16620 Assessment & Plan 65 year old female with complex medical history including Diastolic CHF, COPD, Asthma, DM2 on terminal make up operator insulin, A-Fib on Coumadin presents with 2 days of increasing weakness and [place], much worse than her baseline weakness and dyspnea. # Acute generalized weakness, present on admission. - Likely due to underlying UTI and deconditioning - PT # Acute E. Coli urinary tract infection (UTI), present on admission. - Continue with IV Ceftriaxone and change to PO antibiotics in next day or two # Acute on chronic anemia. present on admission. - Check stool guaiac - iron studies unremarkable - Repeat h/h is stable # Chronic Insulin dependent diabetes mellitus Type II. stable - Continue basal insulin - Correctional scale insulin # Chronic diastolic Heart Failure, present on admission. - Echocardiogram showing ejection fraction of 45-50% and mild global hypokinesis of the left ventricle. - Continue with home dose Lasix # History of COPD/Asthma. Stable. - Continue with current treatment and supportive care # Chronic A-Fib. - Rate controlled. - Continue with home meds (Dig and Metoprolol) # Chronic anticoagulation with Coumadin - INR subtherapeutic - Continue with Coumadin - Followup daily INR - SC Heparin for DVT prophylaxis until INR therapeutic # History of Depression/Anxiety. Stable - Continue with home meds # Hypothyroid - Continue with home dose Synthroid. Dispo: likely SNF in am VTE Prophylaxis: Sub-Q Heparin (Unfractionated), SCDs Resuscitation Status: DNR/DNI:Do Not Resuscitate/Intubate Limited Interventions: Medications and IV Fluid Arnaud Oro Jun 07, 2016 12:35
--- NOTE | 2016-06-07 13:15 | NUR ---
Social Work: Readiness for d/c Data: Pt is on day 2 of hospitalization. EMR reviewed, pt discussed in rounds. MD states pt likely ready for d/c tomorrow. [employer]ING [employer] will continue to follow. Assessment: Pt who is independent at baseline. Plan: Pt will d/c to [facility] when medically stable, likely tomorrow per . [employer] will continue to follow. NAVDEEP Pardo
[2016-06-07 14:00] VITALS: BP 135/78; PULSE 86; RESP 20; O2SAT 94
--- NOTE | 2016-06-07 17:22 | NUR ---
Med refusal Patient refusing Heparin Injection, Dr. Oro aware. Patient awaiting SNIF discharge. Will continue to monitor.
[2016-06-07 20:20] VITALS: BP 140/73; RESP 16; O2SAT 95
[2016-06-07] MEDS: Insulin GLARgine 100 Unit/mL Syringe SUBQ SCH (21:43)
[2016-06-08] VITALS: PULSE 85
[2016-06-08] MEDS: cefTRIAXone Inj 1,000 MG in Dextrose 5% Minibag Plus 50 ML IV SCH (00:38)
[2016-06-08] MEDS: Heparin 5,000 Unit/mL Inj SUBQ SCH ×2 (00:38→10:13)
[2016-06-08 04:15] VITALS: BP 144/72; PULSE 87; RESP 18; O2SAT 94
[2016-06-08 05:18] VITALS: PULSE 68
--- NOTE | 2016-06-08 05:41 | NUR ---
Resp/ pt SOB with activity, also feels SOB when she talks, unable to speak in full sentences, on RA all night with sats in mid 90's. pt up to BSC frequently, experiences urgency and dribbling, denies any pain.
[2016-06-08 07:15] LABS: INR 1.89 ratio
[2016-06-08 07:59] VITALS: PULSE 79
[2016-06-08 08:00] VITALS: BP 133/84; PULSE 75; RESP 18; O2SAT 93
[2016-06-08] MEDS: Insulin LISPRO 300 Unit/3 mL Inj SUBQ SCH (09:09)
[2016-06-08] MEDS: Potassium Chloride 20 mEq SR Tablet PO SCH (10:12)
[2016-06-08] MEDS: MeTOProlol XL 25 mg ER24 Tablet PO SCH (10:13)
[2016-06-08] MEDS ORDERED: CEPH-512 PO (10:48)
--- NOTE | 2016-06-08 10:53 | PCM.DIMED ---
Discharge Instructions Date of Service Jun 08, 2016 Dates of Hospitalization Jun 05, 2016 at 20:41 Discharge Diagnosis Discharge Diagnosis # Acute generalized weakness, present on admission. - Likely due to underlying UTI and deconditioning # Acute E. Coli urinary tract infection (UTI), present on admission. # Acute on chronic anemia. present on admission. Stable. - iron studies unremarkable # Chronic Insulin dependent diabetes mellitus Type II. stable # Chronic diastolic Heart Failure, present on admission. Stable. - Echocardiogram showing ejection fraction of 45-50% and mild global hypokinesis of the left ventricle. # History of COPD/Asthma. Stable. # Chronic A-Fib. Rate controlled. # Chronic anticoagulation with Coumadin - INR subtherapeutic at 1.89 # History of Depression/Anxiety. Stable # Hypothyroid. Stable Medication Instructions Continue with Coumadin. Check daily INR while on antibiotics. Goal INR (2-3) Diet Low fat, Low Sodium, Heart Healthy, Diabetic Activity Other (as tolerated and per physical therapy) Patient Instructions Follow-up plan 1. Followup with primary care provider within one week Follow-up Provider: Alvin Mayer MD Follow-up with PCP in: 1 week Arnaud Oro Jun 08, 2016 10:53
[2016-06-08 12:00] VITALS: PULSE 86; RESP 20; O2SAT 93
--- NOTE | 2016-06-08 12:22 | NUR ---
Social Work- Discharge Data: EMR reviewed. Pt is on day 3 of hospitalization for CHF per H&P. Pt to discharge today. PT continues to recommend SNF, as pt able to march minimally (~10 sec) before needing to sit. QUINN spoke with Amanuel, admissions at [facility], who is agreeable to accepting pt today. QUINN created packet and faxed orders. Paperwork in chart. [facility] faxed and in folder. Amanuel set up transportation via cabulance for 1300. QUINN notified TIKA Bustamante, of pt's discharge. UC, RN, pt/family, and [facility]- all updated and agreeable to plan. Assessment: Pt who would benefit from SNF. Plan: Pt to discharge to [facility] via cabluance at 1300. UC, RN, pt/family, and [facility]- all updated and agreeable to plan. Shayla North, [employer]
--- NOTE | 2016-06-08 13:41 | NUR ---
Discharge Pt. discharged to [facility] at 1300 in stable condition. IV and tele dc'd prior to discharge. Report given over the phone to [facility] RN before transport. All paperwork and belongings with pt. No questions or concerns at this time.
--- NOTE | 2016-06-08 17:25 | PCM.DC.MED ---
Discharge Summary Date of Service Jun 08, 2016 Dates of Hospitalization Date of Hospital Admission Jun 05, 2016 at 20:41 Date of Discharge: Jun 08, 2016 Providers: Admitting Physician: Pete Tobar MD Primary Care Physician: Alvin Mayer MD Attending Physician: Pete Tobar MD Diagnosis at Time of Discharge Diagnosis at Time of Discharge # Acute generalized weakness, present on admission. - Likely due to underlying UTI and deconditioning # Acute E. Coli urinary tract infection (UTI), present on admission. # Acute on chronic anemia. present on admission. Stable. - iron studies unremarkable # Chronic Insulin dependent diabetes mellitus Type II. stable # Chronic diastolic Heart Failure, present on admission. Stable. - Echocardiogram showing ejection fraction of 45-50% and mild global hypokinesis of the left ventricle. # History of COPD/Asthma. Stable. # Chronic A-Fib. Rate controlled. # Chronic anticoagulation with Coumadin - INR subtherapeutic at 1.89 # History of Depression/Anxiety. Stable # Hypothyroid. Stable Procedures XRay, CTs & MRIs Date of Service: 06/05/16 1754 PROCEDURE: X-RAY CHEST ONE VIEW, PORTABLE ([id number]) IMPRESSION: 1. No acute cardiopulmonary disease. 2. Large hiatal hernia redemonstrated. Dictated by: Hieu Sotelo M.D. on 06/05/2016 at 18:56 Approved by: Hieu Sotelo M.D. on 06/05/2016 at 18:57 Cardiac Echo Impression Date of Service: 06/06/16 0800 Echocardiogram Report Interpretation Summary There is normal left ventricular wall thickness. The ejection fraction is estimated to be 45-50%. There is mild global hypokinesis of the left ventricle. There is mild aortic valve sclerosis. There is mild tricuspid regurgitation. The right ventricular systolic pressure is estimated at 34 mmHg assuming a right atrial pressure of 3 mm Hg. Electronically signed by: Alcides Driscoll on Reading Physician:06/06/2016 11:11 AM Brief History As noted in H&P by Dr. Johnson: Pleasant 65yo woman with complex medical history including Diastolic CHF, COPD, Asthma, DM2 on [facility] insulin, AFib on coumadin presents with 2 days of increasing weakness and [place], much worse than her baseline weakness and dyspnea. She reports that usually she doesn't need a walker in her home and does not get short of breath there. But today she went for protime appointment, barely made it into the lab, and then was not able to get up and leave so that clinic sent her to from which she was sent to our ER. She always has edema or the lower legs L>R. In the ER she was found to have K+ of 3.1, UA positive for infection , EKG indicating AFib with normal rate. Her only medication for COPD and asthma is a rescue inhaler which she uses 1-2 times daily. She is anemic with Hgb of 9.8 which is lower than the 10.6 we find from a year ago in [facility]. She denies dysuria, abdominal pain, urgency with urination. Hospital Course # Acute generalized weakness, present on admission. Improving - Likely due to underlying UTI and deconditioning - PT recommending SNF # Acute E. Coli urinary tract infection (UTI), present on admission. - Treated with IV Ceftriaxone during this hospital and will continue with PO Abx on discharge (as noted below) # Acute on chronic anemia. present on admission. - Stool guaiac negative - iron studies unremarkable - Repeat h/h is stable # Chronic Insulin dependent diabetes mellitus Type II. stable # Chronic diastolic Heart Failure, present on admission. - Echocardiogram showing ejection fraction of 45-50% and mild global hypokinesis of the left ventricle. - Continue with home dose Lasix # History of COPD/Asthma. Stable. - Continue with current treatment and supportive care # Chronic A-Fib. - Rate controlled. - Continue with home meds (Dig and Metoprolol) # Chronic anticoagulation with Coumadin - INR subtherapeutic - Continue with Coumadin - Followup daily INR - Patient refused to received SC Heparin for DVT prophylaxis until INR therapeutic # History of Depression/Anxiety. Stable - Continue with home meds # Hypothyroid - Continue with home dose Synthroid. Exam Vital Signs (Last) Date Time Temp Pulse Resp B/P Pulse Ox O2 Delivery O2 Flow Rate FiO2 06/08/16 12:00 86 20 93 Room Air 06/08/16 08:00 36.5 133/84 06/05/16 21:34 3 Exam General: Alert, Cooperative, No Acute Distress Head: Normal Eyes: Scleral Anicteric Nose: Mucous Membr Moist/[place] Mouth: Mucous Membr Moist/[place] Neck: Supple Chest & Lungs: Chest Wall Normal, Clear to auscultation bilat Cardiovascular: Regular Rate/Rhythm Pulses: NL carotid, radial, femoral, DP, PT Abdomen: Non-tender, Non-distended, Normoactive bowel tones, Soft Extremities: No cyanosis/clubbing/edema bilat Neurological: Grossly Neurologically Intact, Normal Speech Test 06/05/16 17:10 06/05/16 18:00 06/05/16 18:20 06/05/16 21:49 Hold Red Top Tube Received (Received) Alcohols < 10mg/dL (0-10) Ketones Negative (Negative) Total Bilirubin 0.7mg/dL (0.0-1.2) Aspartate Amino Transf (AST/SGOT) 8U/L (0-50) Alanine Aminotransferase (ALT/SGPT) 6U/L (0-32) Alkaline Phosphatase 119U/L (25-165) Pro-B-Type Natriuretic Peptide 844.5pg/mL (0-301) Total Protein 7.2g/dL (6.4-8.4) Albumin 3.9g/dL (3.4-5.0) D-Dimer < 0.50mg/L FEU (<0.50) Urine Color Dark yellow (YELLOW) Urine Appearance Cloudy (CLEAR,HAZY) Urine pH 6.0 (5.0-8.0) Urine Specific [place] 1.015 (1.003-1.035) Urine Protein 30mg/dL (NEG,TRACE) Urine Glucose (UA) Negativemg/dL (NEGATIVE) Urine Ketones 15mg/dL (NEGATIVE) Urine Occult Blood Trace (NEGATIVE) Urine Nitrite Negative (NEGATIVE) Urine Bilirubin Small (NEGATIVE) Urine Ictotest Positive (Negative) Urine Urobilinogen Normalmg/dL (NORMAL) Urine Leukocyte Esterase Large (NEGATIVE) Urine RBC 0-2/hpf (0-2) Urine WBC Packed/hpf (0-5) Urine Epithelial Cells Many/hpf (NONE-MOD) Urine Crystals None seen (NONE SEEN) Urine Bacteria Many/hpf (NONE-FEW) Urine Hyaline Casts None/lpf (NONE) Urine Granular Casts None seen (NONE SEEN) Urine Waxy Casts None seen (NONE SEEN) Urine Red Blood Cell Casts None seen (NONE SEEN) Urine White Blood Cell Casts None seen (NONE SEEN) Urine Mucus None seen (None Seen) Urine Trichomonas None seen (NONE SEEN) Urine Yeast None (NONE SEEN) Urine Culture Reflexed Indicated Test 06/06/16 01:15 06/06/16 06:00 06/06/16 11:05 06/06/16 14:15 Hold Purple Top Tube Received (Received) Hemoglobin A1c 7.1% (4.8-5.6) Iron Level 127ug/dL (35-150) Total Iron Binding Capacity 296ug/dL (250-450) Percent Iron Saturation 43%sat (15-50) Unsaturated Iron Binding 168.7ug/dL Ferritin 179ng/mL (13-150) Hold [place] Top Tube Received (Received) Digoxin Level 0.5nG/mL (0.9-2.0) Hold [place] Top Tube Received (Received) Neutrophils (%) (Auto) 75.8% (40-74) Lymphocytes (%) (Auto) 12.2% (14-46) Monocytes (%) (Auto) 6.3% (4-12) Eosinophils (%) (Auto) 3.8% (0-5) Basophils (%) (Auto) 0.6% (0-3) Reticulocyte Count,Calculated 1.2% (0.6-2.6) Vitamin B12 Level 496pg/mL (211-946) Folate 4.4ng/mL (>3.0) Test 06/07/16 06:21 06/08/16 06:20 White Blood Count 5.7th/mm3 (3.8-10.1) Red Blood Count 3.11mil/mm3 (3.90-5.20) Hemoglobin 8.5g/dL (12.0-15.6) Hematocrit 27.7% (35.0-46.0) Mean Corpuscular Volume 89.1fL (81-100) Mean Corpuscular Hemoglobin 27.3pg (27.0-35.0) Mean Corpuscular Hemoglobin Concent 30.7% (32.0-37.0) Red Cell Distribution Width 16.8% (12.3-15.4) Platelet Count 248bil/L (150-400) Sodium Level 137mEq/L (134-144) Potassium Level 3.9mEq/L (3.5-5.2) Chloride Level 95mEq/L (97-108) Carbon Dioxide Level 27mmol/L (18-29) Blood Urea Nitrogen 7mg/dL (8-27) Creatinine 0.61mg/dL (0.57-1.00) Estimat Glomerular Filtration Rate 140mL/min (>59) Glucose Level 240mg/dL (60-99) Lactic Acid Level 1.0mmol/L (0.4-2.0) Calcium Level 8.5mg/dL (8.5-10.1) Magnesium Level 1.6mg/dL (1.6-2.6) Troponin T < 0.010ug/L (0.0-0.011) Thyroid Stimulating Hormone (TSH) 3.430uIU/mL (0.450-4.500) Prothrombin Time 20.5sec (8.1-12.5) Prothromb Time International Ratio 1.89ratio Discharge Medications Discharge Medications Atorvastatin (Lipitor) 40 Mg Tablet 40 MG PO HS (Reported) Cephalexin (Keflex) 500 Mg Capsule 500 MG PO BID Prescribed by: ABELARDO CLARK MD Digoxin (Digoxin) 250 Mcg Tablet 250 MCG PO QAM (Reported) Furosemide (Furosemide) 20 Mg Tab 20 MG PO QAM (Reported) Glipizide (Glipizide) 5 Mg Tablet 5 MG PO BIDWM (Reported) Insulin Aspart (NovoLOG U100 Insulin Vial) 100 U/Ml U 5 UNIT SUBQ DAILYWM ( Reported) 5 UNITS WITH BREAKFAST, 5-7 UNITS WITH DINNER Insulin Aspart (NovoLOG U100 Insulin Vial) 100 U/Ml U 5-7 UNIT SUBQ DAILYWD ( Reported) 5 UNITS WITH BREAKFAST, 5-7 UNITS WITH DINNER Insulin Glargine (Lantus U100 Insulin Vial) 100 Unit/Ml Vial 10 UNIT SUBQ HS ( Reported) Levothyroxine (Levothyroxine) 88 Mcg Tablet 88 MCG PO QAM (Reported) Magnesium Oxide (Magnesium Oxide) 400 Mg Tablet 400 MG PO QAM (Reported) Metoprolol Succinate ER (Metoprolol Succinate ER) 25 Mg Tab.er.24h 25 MG PO QAM (Reported) Multivit with Calcium,Iron,Min (Therapeutic M) 1 Each Tablet 1 EACH PO QAM ( Reported) Potassium Chloride (Potassium Chloride) 20 Meq Tablet 20 MEQ PO DAILYWM Prescribed by: ABELARDO CLARK MD Ranitidine (Ranitidine) 150 Mg Capsule 150 MG PO BIDWM (Reported) Sertraline HCl (Sertraline) 20 Mg/1 Ml Oral.conc 100 MG PO QAM (Reported) Trazodone (Trazodone) 50 Mg Tablet 100-150 MG PO HS (Reported) Warfarin Sodium (Warfarin Sodium) 6 Mg Tablet 6 MG PO DAILY EXCEPT SUNDAYS ( Reported) 3 MG ON SUNDAYS, 6 MG ALL OTHER DAYS Warfarin Sodium (Warfarin Sodium) 6 Mg Tablet 3 MG PO SUNDAYS (Reported) 3 MG ON SUNDAYS, 6 MG ALL OTHER DAYS As needed Albuterol HFA (Proair HFA) 8.5 Gm Hfa.aer.ad 2 PUFFS INHALATION Q4H PRN PRN For Shortness of Breath (Reported) Additional med instructions Continue with Coumadin. Check daily INR while on antibiotics. Goal INR (2-3) Followup Plan Disposition: SNF Follow-up plan 1. Followup with primary care provider within one week Discharge Diet: Low fat, Low Sodium, Heart Healthy, Diabetic Discharge Activity: Other (as tolerated and per physical therapy) Follow-up Provider: Alvin Mayer MD Follow-up with PCP in: 1 week Time spent 30 min copies to: Alvin Mayer MD, [place] Jun 08, 2016 17:25
== END 2016-06-08 13:00 | DRG 690 ==
LOC: SED 16:54 → OBSVTOIN 20:41 → MOC 20:41
PROVIDERS: ADMIT Hospitalist; ATTEND Hospitalist
DX: N39.0 Urinary tract infection, site not specified (principal); I50.32 Chronic diastolic (congestive) heart failure; E87.2 Acidosis; B96.20 Unspecified Escherichia coli [E. coli] as the cause of diseases classified elsewhere; E03.9 Hypothyroidism, unspecified; R29.6 Repeated falls; J44.9 Chronic obstructive pulmonary disease, unspecified; K21.9 Gastro-esophageal reflux disease without esophagitis; I48.2 Chronic atrial fibrillation; J45.909 Unspecified asthma, uncomplicated; F17.210 Nicotine dependence, cigarettes, uncomplicated; E11.40 Type 2 diabetes mellitus with diabetic neuropathy, unspecified; F41.8 Other specified anxiety disorders; Z66 Do not resuscitate; Z79.4 Long term (current) use of insulin; Z79.51 Long term (current) use of inhaled steroids